=== PATIENT | female | born 1975 | race Caucasian/White ===

== ENCOUNTER 2016-07-15 05:25 | Day surgery (SDC) | payer SELFPAY ==
[2016-07-11 11:18] LABS: HEMATOCRIT 43.1 % (36.0-47.0); HGB HCT DIFFERENCE 1.9; MEAN CORPUSCULAR HEMOGLOBIN 30.2 pg (27.0-33.4); MEAN CORPUSCULAR HGB CONC 34.7 g/dL (32.0-36.0); MEAN CORPUSCULAR VOLUME 87 fl (80-97); RED BLOOD COUNT 4.95 10^6/uL (3.72-5.28); RED CELL DISTRIBUTION WIDTH 12.6 % (11.5-14.0); WHITE BLOOD COUNT 6.6 10^3/uL (4.0-10.5)
[2016-07-11 11:25] LABS: APPEARANCE,URINE SLIGHTLY-CLOUDY; BILIRUBIN,URINE NEGATIVE (NEGATIVE); GLUCOSE, URINE NEGATIVE (NEGATIVE); KETONES,URINE NEGATIVE (NEGATIVE); LEUKOCYTE ESTERASE,URINE NEGATIVE (NEGATIVE); NITRITE,URINE NEGATIVE (NEGATIVE); PROTEIN,URINE NEGATIVE (NEGATIVE); URINE SPECIFIC GRAVITY 1.025; UROBILINOGEN,URINE NEGATIVE mg/dL (<2.0)
[2016-07-11 11:26] LABS: PROTHROMBIN TIME 12.2 SEC (11.4-15.4)
[2016-07-11 11:27] LABS: COSMETIC PTT 33.3 SEC (23.5-35.8)
[2016-07-11 11:39] LABS: COSMETIC HCG NEGATIVE (NEGATIVE)
[2016-07-11 11:44] LABS: ANION GAP 14 (5-19); BLOOD UREA NITROGEN 12 mg/dL (7-20); CALCIUM 10.1 mg/dL (8.4-10.2); CARBON DIOXIDE 23 mmol/L (22-30); CHLORIDE 105 mmol/L (98-107); CREATININE RESULT 0.72 mg/dL (0.52-1.25); GLUCOSE 124 mg/dL (75-110); POTASSIUM 4.2 mmol/L (3.6-5.0); SODIUM 142.3 mmol/L (137-145)
--- NOTE | 2016-07-11 21:55 | EKG REPORT ---
SEVERITY:- NORMAL ECG - SINUS RHYTHM : Confirmed by: Tianna Archuleta MD 11-Jul-2016 21:54:53
[~2016-07-15 05:25] MED LIST: DOXYCYCLINE HYCLATE 100 MG in DEXTROSE 5%-WATER 250 ML IV PRN; LACTATED RINGERS 1000 ML IV PRN; LIDOCAINE 0.5% INJ-PF (5 MG/ML) 50 ML SDV SUBCUT PRN
[2016-07-15] MEDS ORDERED: FENTANYL CITRATE INJ/PF 250 MCG/5 ML AMPULE ONE (06:40)
[2016-07-15] MEDS ORDERED: EPHEDRINE SULFATE INJ 50 MG/1 ML AMPULE ONE (06:40)
[2016-07-15] MEDS ORDERED: MIDAZOLAM 2 MG/2 ML INJ ONE (06:40)
[2016-07-15] MEDS ORDERED: PROPOFOL INJ 200 MG/20 ML VIAL IV ONE (06:41)
[2016-07-15] MEDS ORDERED: ACETAMINOPHEN 100 ML IV ONE (06:41)
[2016-07-15] MEDS ORDERED: CEFAZOLIN INJ 1 GM VIAL ONE (06:49)
[2016-07-15] MEDS ORDERED: LIDOCAINE 0.5%/EPINEPHRINE INJ 50 ML VIAL ONE (06:49)
[2016-07-15] MEDS ORDERED: BACITRACIN INJ 50,000 UNIT VIAL ONE (06:49)
[2016-07-15] MEDS ORDERED: GENTAMICIN SULFATE INJ 80 MG/2 ML VIAL ONE (06:49)
[2016-07-15] MEDS ORDERED: POLYMYXIN B SULFATE INJ 500000 UNIT VIAL ONE (07:20)
[2016-07-15] MEDS ORDERED: MEPERIDINE HCL/PF INJ 25 MG/1 ML DISP.SYRIN IV PRN (09:55)
[2016-07-15] MEDS ORDERED: DIPHENHYDRAMINE HCL 50 MG/ML VIAL IV PRN (09:55)
[2016-07-15] MEDS ORDERED: OXYCODONE-ACETAMINOPHEN 5-325 MG TABLET PO PRN ×6 (09:55→11:03)
[2016-07-15] MEDS ORDERED: ONDANSETRON HCL INJ/PF 4 MG/2 ML SDV IV PRN (09:55)
[2016-07-15] MEDS ORDERED: MORPHINE SULFATE 10 MG/ML INJ IV PRN (09:55)
[2016-07-15] MEDS ORDERED: PROMETHAZINE HCL INJ 25 MG/1 ML VIAL IV PRN ×2 (09:55)
[2016-07-15] MEDS ORDERED: FENTANYL CITRATE INJ/PF 100 MCG/2 ML AMPUL IV PRN ×3 (09:55)
[2016-07-15] MEDS: FENTANYL CITRATE INJ/PF 100 MCG/2 ML AMPUL ONE ×2 (10:44→10:49)
--- NOTE | 2016-07-15 11:08 | DISCHARGE SUMMARY E ---
Discharge Summary NAME: BELLO THURMAN : 1975 AGE: 40Y ADMITTED: 07/15/2016 DISCHARGED: 07/15/2016 DISCHARGE DIAGNOSIS: Right implant replacement using [place] 1600 round, smooth, saline implants, removing a 375-cc deflated implant which was exchanged for a 350-cc [place] 1600 smooth, round, moderate profile implant which was filled to 375 cc at the patient's request. HOSPITAL COURSE: The patient was admitted to the hospital, had the above-named procedure and was discharged home to keep her arms at her side, limit her activities, watch for any signs of infection, take her antibiotics until she is seen back in the office on , resume any medicines. If there are any problems please contact us at the office. The patient understands my directives. I will see her back in the office on . DICTATING PHYSICIAN: JOSHUA GUTIERREZ JR., M.D. [id number] PHY#: [id number] ID: [id number] JOB#: [id number] ACCT: [id number] cc:JOSHUA GUTIERREZ JR., M.D. >
--- NOTE | 2016-07-15 11:19 | OPERATIVE REPORT E ---
Operative Report NAME: BELLO THURMAN : 1975 AGE: 40Y DATE OF SURGERY: 07/15/2016 ROOM: PREOPERATIVE DIAGNOSIS: Right breast implant deflation. POSTOPERATIVE DIAGNOSIS: Right breast implant deflation. PROCEDURE PERFORMED: Right breast implant exchange. SURGEON: JOSHUA GUTIERREZ JR., M.D. ANESTHESIA: General and endotracheal tube anesthesia. COMPLICATIONS: The patient tolerated it well. No complications. IMPLANT PLACED: 350 replaced in a 375 cc implant that she originally had because she wanted it a little bit smaller in size and a softer feel, so we went ahead and followed her directives using a 350 cc implant and not overfilling it to the max so that it would be softer for her, but we did let her know that there is a higher chance of implant leakage and failure over time by not overfilling it to the maximal overfill volume. We placed a 350 cc implant and filled it to 375. The patient tolerated this well, and again, no complications. PROCEDURE AND FINDINGS IN DETAIL: The patient was laying on the table in a supine position. The night before, the patient had markings made for the outline on both breasts for the implant location. After we had performed the check prior to being brought into the operating room, all the mims were still present. The patient already had a warming blanket on and her compression boots were working. She was brought into the operating room and placed under general anesthesia. An orogastric tube was placed. A Jimenez catheter was placed. The patient's mims were darkened. She was then prepped with a Betadine scrub and a Betadine solution and draped in a sterile aseptic manner. This was a right implant exchange. The area on the right breast where the previous incision was, was outlined and then anesthetized with 0.25% lidocaine with epinephrine. This was off the area along the inframammary crease was also all anesthetized. After we anesthetized the area and the incision, we made the incision with a 15 blade. We then used the bipolar near the surface of the skin, continued our dissection with the Bovie using the needle tip at 25, and dissected down towards the pectoralis fascia and the capsule of the implant. We then switched to a blade tip for the Bovie and used 35 for the dissection. We then went ahead and opened up the capsule with a capsulotomy and then this allowed us now to better see the implant. After we opened the capsule, there was a small amount of nice clear fluid. The implant had only a small amount of saline still in it. Using the [place], we were able to deliver the implant without having to cannulize it and remove any extra fluid. Once we removed the implant, it was seen that there was a small vertical slit in the implant. The pocket was then irrigated with triple antibiotic solution using bacitracin, gentamicin, and polymixin rather than Keflex because the patient had a PENICILLIN allergy. After thoroughly irrigating the pocket, we then went ahead and explored and the pocket appeared to have a very nice smooth, thin capsule. There were really no areas of thickening. The pocket was beautiful and nice and wide and will easily accommodate the implant that is going to be replaced. There were no signs of any thickening or hardening or any suspicious areas along the capsule that needed to be biopsied. So, after we did a thorough exploration, made sure the pocket was going to be adequate, we then irrigated again with triple antibiotic solution. We placed 3-0 Vicryl sutures into the capsule, the 2-in-1s being clamped on themselves and the individual in between was reclamped independently. After we did this, we then changed our gloves. We opened up a 350 implant. On the left side, the patient has 375-405. She felt that the right side was larger and wanted to go down 1 size and wanted to be softer and not overfilled, so we went ahead and used the 350 [place] implant. We *------* this under the triple antibiotic solution making sure that there were no leaks. After we did this, we then filled the implant with 60 mL of saline coming from a closed system IV bag. We then tested again for leaks. There were no signs of leaks. After we completed this, we then removed all the saline from the implant, folded it into a cigar shape, and then placed it into the pocket. We then unfolded the implant and serially filled it to 375. This gave her plenty of space within the pocket and we then compared the left side to the right side. It appeared to be reasonably symmetrical. We sat her up and it again appeared to be reasonably symmetrical and no further adjustments were needed. We digitally felt the implant with a glove that was a new glove with no powder and also not exposed to the skin. We made sure that the surface was as smooth as possible. We removed a fill plug and made sure the cap was placed into the plug. We then went ahead and tied the Vicryl sutures. After tying the sutures, we irrigated with triple antibiotic solution, closed the deep dermis with 4-0 Prolene. The capsule sutures that were placed were tied so that the knots would be in the subcutaneous tissue, not inside the pocket, and after placing the deep dermal sutures of 4-0 Vicryl we used a 4-0 PDS with a subcuticular stitch with knots being tied on the outside. We applied Dermabond and then we placed 4 x 4s and ABD pads and a triple folded ABD pad for pressure on the lateral side in order to keep the implant as medial as possible. She was then put into a surgical bra. The patient was then reversed from anesthesia and taken to the [facility] for recovery. The patient tolerated this well with no complications. DICTATING PHYSICIAN: JOSHUA GUTIERREZ JR., M.D. [id number] PHY#: [id number] ID: [id number] JOB#: [id number] ACCT: [id number] cc:JOSHUA GUTIERREZ JR., M.D. >
[2016-07-15 13:13] VITALS: BP 110/75
[2016-07-15] MEDS ORDERED: LIDOCAINE 2% INJ-PF (20 MG/ML) 10 ML AMPUL ONE (14:08)
[2016-07-15] MEDS ORDERED: METOCLOPRAMIDE HCL INJ/PF 10 MG/2 ML SDV ONE (14:08)
[2016-07-15] MEDS ORDERED: SUCCINYLCHOLINE CHLORIDE INJ 200 MG/10 ML VIAL ONE (14:08)
[2016-07-15] MEDS ORDERED: DEXAMETHASONE SOD PHOSPHATE INJ 4 MG/1 ML VIAL ONE (14:08)
[2016-07-15] MEDS ORDERED: ONDANSETRON HCL INJ/PF 4 MG/2 ML SDV ONE (14:08)
== END 2016-07-15 13:10 | disposition home or self-care (01) ==
LOC: OROUT 05:25
PROVIDERS: ATTEND Plastic Surgery
PROC: 0HRT0JZ Replacement of Right Breast with Synthetic Substitute, Open Approach (ICD-10-PCS; 2016-07-15)
PROC: 0HUT0JZ Supplement Right Breast with Synthetic Substitute, Open Approach (ICD-10-PCS; principal; 2016-07-15 07:30)
DX: Z45.811 Encounter for adjustment or removal of right breast implant (principal); Z88.0 Allergy status to penicillin
CPT/HCPCS: 93005; 36415; 81025; 85027; 85610; 85730; 81000; 80048; 84703; 93010; 19340; 19330; L8000; J2250; J3490 ×6; J1100; J3010 ×2; J1580; J2765; J0330; J2405; J7060; J2704; J0131; 400; J0690

== ENCOUNTER 2018-08-02 07:50 | Day surgery (SDC) | payer OTHER ==
[2018-07-30 11:37] LABS: ABSOLUTE EOSINOPHILS # (AUTO) 0.1 10^3/uL (0.0-0.6); ABSOLUTE LYMPHOCYTES (AUTO) 1.8 10^3/uL (0.5-4.7); ABSOLUTE MONOCYTES (AUTO) 0.5 10^3/uL (0.1-1.4); ABSOLUTE NEUT (AUTO) 5.4 10^3/uL (1.7-8.2); BASOPHILS % (AUTO) 0.3 % (0-2); EOSINOPHILS % (AUTO) 0.9 % (0-6); HEMATOCRIT 44.6 % (36.0-47.0); HEMOGLOBIN 15.1 g/dL (12.0-15.5); LYMPHOCYTES % (AUTO) 23.2 % (13-45); MEAN CORPUSCULAR HEMOGLOBIN 30.4 pg (27.0-33.4); MEAN CORPUSCULAR HGB CONC 33.7 g/dL (32.0-36.0); MEAN CORPUSCULAR VOLUME 90 fl (80-97); MONOCYTES % (AUTO) 5.9 % (3-13); PLATELET COUNT 412 10^3/uL (150-450); RED BLOOD COUNT 4.95 10^6/uL (3.72-5.28); RED CELL DISTRIBUTION WIDTH 12.2 % (11.5-14.0); SEGMENTED NEUTROPHILS % (AUTO) 69.7 % (42-78); TOTAL CELLS COUNTED % (AUTO) 100 %; WHITE BLOOD COUNT 7.8 10^3/uL (4.0-10.5)
[2018-07-30 12:01] LABS: ANION GAP 12 (5-19); BLOOD UREA NITROGEN 12 mg/dL (7-20); CALCIUM 9.8 mg/dL (8.4-10.2); CARBON DIOXIDE 26 mmol/L (22-30); CHLORIDE 101 mmol/L (98-107); GLUCOSE 98 mg/dL (75-110); POTASSIUM 4.7 mmol/L (3.6-5.0); SODIUM 138.6 mmol/L (137-145)
[~2018-08-02 07:50] MED LIST changes: +ACETAMINOPHEN 1,000 MG/100 ML RTUPB IV ONE; +CEFAZOLIN 2 GM/D5W RTU 0 GM/0 ML RTUPB IV ONE; +CEFAZOLIN 2 GM/D5W RTU 2 GM/50 ML RTUPB IV PRN; +DEXAMETHASONE SOD PHOSPHATE INJ 4 MG/1 ML VIAL ONE; -DOXYCYCLINE HYCLATE 100 MG in DEXTROSE 5%-WATER 250 ML IV PRN; +FENTANYL CITRATE INJ/PF 250 MCG/5 ML AMPULE ONE; +GABAPENTIN 400 MG CAPSULE ONE; +GABAPENTIN 400 MG CAPSULE PO PRN; +MIDAZOLAM 2 MG/2 ML INJ ONE; +ONDANSETRON HCL INJ/PF 4 MG/2 ML SDV ONE; +PROPOFOL INJ 200 MG/20 ML VIAL IV ONE; +SUGAMMADEX SODIUM 200 MG/2 ML SDV IV ONE
[2018-08-02] MEDS ORDERED: CLINDAMYCIN 900 MG/D5W RTU 900 MG/50 ML RTUPB IV ONE (09:26)
[2018-08-02] MEDS ORDERED: BUPIVACAINE HCL 0.25 % INJ/PF (2.5 MG/1 ML) 30 ML VIAL ONE (09:37)
[2018-08-02] MEDS ORDERED: GENTAMICIN SULFATE 110 MG in DEXTROSE 5%-WATER 100 ML IV PRN (09:39)
--- NOTE | 2018-08-02 10:16 | Discharge Summary ---
Discharge Summary (SDC) - Discharge Final Diagnosis: Fibroid uterus Abnormal Uterine Bleeding - L Date of Surgery: 08/02/18 Discharge Date: 08/02/18 Condition: Good Forms: Post Operative Treatment or Instructions: Robotic assisted total laparoscopic myomectomy, hysterectomy and bilateral salpingectomy Prescriptions: Acetaminophen [Tylenol 325 mg Tablet] 325 mg PO Q4HP PRN #30 tablet PRN Reason: Pain Scale Of 3 RX: Ibuprofen [Motrin 800 mg Tablet] 800 mg PO Q8H PRN #60 tab PRN Reason: Pain Scale Of 3 RX: Oxycodone HCl [Roxicodone] 5 mg PO Q4H PRN #15 tablet PRN Reason: Pain Scale Of 4 Referrals: YOLIE QUINTERO MD [NO LOCAL MD] - (Please call [phone] to book your post op appointments. If you have clinical questions call BRUCE Varela at [phone]) Discharge Diet: As Tolerated Respiratory Treatments at Home: Deep Breathing/Coughing Discharge Activity: Activity As Tolerated, Balance Activity w/Rest, Pelvic Rest, Slowly Increase Activity Home Care Assistance: None Needed Report the Following to Your Physician Immediately: Vomiting, Increase in Pain, Fever over 101 Degrees, Unusual Bleeding, Increased Vaginal Bleed, Large Clots, IV Site Infection Signs, Urinary Infection Signs
[2018-08-02] MEDS ORDERED: ONDANSETRON HCL INJ/PF 4 MG/2 ML SDV IV PRN ×2 (10:31→12:54)
[2018-08-02] MEDS ORDERED: MORPHINE SULFATE 10 MG/ML INJ IV PRN (10:31)
[2018-08-02] MEDS ORDERED: PROMETHAZINE HCL INJ 25 MG/1 ML VIAL IV PRN ×2 (10:31)
[2018-08-02] MEDS ORDERED: MEPERIDINE HCL/PF INJ 25 MG/1 ML DISP.SYRIN IV PRN (10:31)
[2018-08-02] MEDS ORDERED: DIPHENHYDRAMINE HCL 50 MG/ML VIAL IV PRN (10:31)
[2018-08-02] MEDS ORDERED: FENTANYL CITRATE INJ/PF 100 MCG/2 ML AMPUL IV PRN ×3 (10:31)
[2018-08-02] MEDS ORDERED: VASOPRESSIN INJ 20 UNIT/1 ML VIAL ONE (10:57)
[2018-08-02] MEDS ORDERED: FENTANYL CITRATE INJ/PF 100 MCG/2 ML AMPUL ONE (12:23)
[2018-08-02] MEDS: HYDROMORPHONE HCL INJ/PF 2 MG/ML AMPULE ONE ×2 (12:34→12:47)
[2018-08-02] MEDS ORDERED: OXYCODONE-ACETAMINOPHEN 5-325 MG TABLET PO PRN (12:54)
[2018-08-02] MEDS ORDERED: SUCCINYLCHOLINE CHLORIDE INJ 200 MG/10 ML VIAL ONE (14:56)
[2018-08-02] MEDS ORDERED: ROCURONIUM BROMIDE INJ 50 MG/5 ML VIAL IV ONE (14:56)
[2018-08-02] MEDS ORDERED: KETOROLAC TROMETHAMINE 60 MG/2 ML SDV ONE (14:56)
[2018-08-02 18:28] VITALS: BP 109/62
--- NOTE | 2018-08-30 12:20 | OPERATIVE REPORT E ---
Operative Report NAME: BELLO THURMAN : 1975 AGE: 42Y DATE OF SURGERY: 08/02/2018 ROOM: 222 PREOPERATIVE DIAGNOSES: 1. Pelvic pain. 2. Abnormal uterine bleeding. POSTOPERATIVE DIAGNOSES: 1. Pelvic pain. 2. Abnormal uterine bleeding. OPERATION: Robotic-assisted total laparoscopic hysterectomy and bilateral salpingectomy. SURGEON: YOLIE QUINTERO M.D. ANESTHESIA: General. COMPLICATIONS: None. ESTIMATED BLOOD LOSS: 100 mL. URINE OUTPUT: Clear at the end of the procedure. SPECIMENS: Uterus, cervix, and bilateral fallopian tubes. FINDINGS: Enlarged uterus, normal tubes and ovaries. INDICATIONS: The patient has a history of pelvic pain and abnormal uterine bleeding refractory to medical management. She has been counseled for the risks, benefits, and alternatives of this procedure, including, but not limited to, observation, further medical management, and open abdominal surgery, and she elects to have the above procedure. DESCRIPTION OF PROCEDURE: After she was properly consented she was taken into the operating room where general anesthesia was induced with endotracheal intubation. She was transferred to a dorsal lithotomy position using adjustable Aryan stirrups, prepped and draped in the usual sterile fashion. Surgical time out was held. Jimenez catheter was placed in the bladder and a [employer] uterine manipulator was placed. Then gloves were changed and I proceeded above where 0.25% plain Marcaine local anesthetic was used at the umbilical incision site. Then, a 12 mm skin incision was made with a scalpel followed by a Veress needle introduced into the peritoneal cavity with correct placement ascertained by drop in CO2 pressure to 2 mmHg. The pneumoperitoneum was established to a pressure of 15 mmHg and the Veress needle was removed. Next, a 12 mm bladeless trocar was advanced to the pneumoperitoneum and immediate visualization of the camera demonstrated an atraumatic entry as well as the findings above. We then placed two right and one left lateral port that were 8 mm in size following the typical routine of local anesthetic, skin incision with a scalpel, and placement of the port under direct visualization. With all the ports in place, the patient was placed in steep Trendelenburg position. The robot console was docked. I then scrubbed out and proceeded to the robotic console. The pelvic anatomy was inspected and the ureters were identified in their usual course by peristalsis at the pelvic brim bilaterally. Dissection was begun on the right side using the fenestrated bipolar graspers and the vessel sealer. The round ligament on the right was cauterized and transected. Next, the broad ligament was opened and dissected inferiorly and anteriorly to create the bladder flap, which was reduced inferiorly. Then the fallopian tube was dissected from the tubo-ovarian ligament and the ovary was dissected from the uterus to the utero-ovarian ligament. The dissection was continued along the lateral portion of the uterine body to connect at the previously transected round ligament. Next, the uterine artery was dissected out and cauterized and transected at the area next to the lower uterine segment. Then, hugging the lower uterine segment of the uterus, the dissection was continued along the side of the cervix to the top of the YOVANA ring. The same dissection was completed on the left side. The areas of dissection were noted to be hemostatic. Next, the edge of the VCare cervical cap was identified and the vessel sealer was switched out for monopolar scissors. The colpotomy was initiated with the monopolar cautery and carried around circumferentially until the specimen was free and pulled through the vagina. The vaginal cuff was closed with a running V-Loc 3-0 Monocryl suture. I incorporated the uterosacral pedicles for support of the vaginal cuff. The pelvis was then irrigated copiously. The patient was taken out of Trendelenburg. All instruments and ports were removed. The 12 mm port site was closed with 0-Vicryl suture, and the skin of the 12 mm port sites were closed with 4-0 Monocryl in a subcuticular fashion and a Dermabond dressing was applied. Anesthesia was reversed. Sponge, lap and needle counts were correct at the end of the procedure. The patient was taken to the PACU in stable condition. DICTATING PHYSICIAN: YOLIE QUINTERO M.D. [id number] PHY#: [id number] ID: [id number] JOB#: [id number] ACCT: [id number] cc:YOLIE QUINTERO M.D. > MTDD
== END 2018-08-02 18:38 | disposition home or self-care (01) ==
LOC: OROUT 07:50 → EDSTATUS 10:30 → 2S 13:37 → OROUT 18:38
PROVIDERS: ATTEND Obstetrics & Gynecology
DX: N93.9 Abnormal uterine and vaginal bleeding, unspecified (principal); D25.9 Leiomyoma of uterus, unspecified; N72 Inflammatory disease of cervix uteri; Z88.0 Allergy status to penicillin
CPT/HCPCS: 58571; S2900; 36415; 80048; 81025; 840; 85025; 86850; 86900; 86901; 88307; J0131; J0330; J0690; J1100; J1170; J1580; J1885; J2250; J2405; J2704; J3010; J3490; J7060